=== PATIENT | male | born 1940 | race African-American/Black ===

== ENCOUNTER 2018-11-27 13:40 | Emergency (ER) | payer MEDICARE ==
[~2018-11-27] VITALS: Ht 182.9 cm; Wt 77.0 kg
[2018-11-27 15:28] LABS: BASOPHILS % 0.7 % (0.0-2.0); CHLORIDE 111 mEq/L (98-107); EOSINOPHILS % 1.3 % (0.0-5.0); HEMATOCRIT. 32.5 % (42.0-52.0); HEMOGLOBIN. 10.7 g/dL (14.0-18.0); LYMPHOCYTES % 18.2 % (20.0-50.0); MEAN CORPUSCULAR HEMOGLOBIN 31.8 pg (28.0-32.0); MEAN CORPUSCULAR VOLUME 96.5 fL (80.0-94.0); MEAN PLATELET VOLUME 7.1 fl (7.4-10.4); NEUTROPHILS % 72.8 % (40.0-76.0); PLATELET 241 x1000/uL (130-400); RED BLOOD CELL COUNT 3.36 mill/uL (4.7-6.1); RED CELL DISTRIBUTION WIDTH 13.7 % (11.6-14.6)
[2018-11-27 15:30] LABS: INR 1.1; PARTIAL THROMBOPLASTIN TIME 26.9 sec (23.4-31.0); PROTHROMBIN TIME 11.7 sec (9.6-11.0)
[2018-11-27 17:45] VITALS: BP 127/83
== END 2018-11-27 17:58 | disposition short-term general hospital (02) ==
LOC: ER 13:50
DX: R55 Syncope and collapse (principal); S09.90XA Unspecified injury of head, initial encounter; R53.1 Weakness; W18.39XA Other fall on same level, initial encounter; Y93.89 Activity, other specified; Y92.89 Other specified places as the place of occurrence of the external cause; Z94.1 Heart transplant status
CPT/HCPCS: 36415; 71045; 83880; 84484; 99285

== ENCOUNTER 2021-07-05 09:34 | Emergency (ER) | payer MEDICARE ==
[~2021-07-05] VITALS: Ht 182.9 cm; Wt 73.0 kg
[2021-07-05 09:38] VITALS: BP 142/92
== END 2021-07-05 11:20 | disposition home or self-care (01) ==
LOC: ER 09:34
DX: R55 Syncope and collapse (principal); Z86.73 Personal history of transient ischemic attack (TIA), and cerebral infarction without residual deficits; Z98.890 Other specified postprocedural states
CPT/HCPCS: 93005; 99283